=== PATIENT | male | born 1995 | race Caucasian/White ===

== ENCOUNTER 2019-07-21 14:18 | Emergency (ER) | payer SELFPAY ==
[~2019-07-21] VITALS: Ht 172.7 cm; Wt 59.0 kg
[2019-07-21 14:22] VITALS: BP 118/63
[2019-07-21] MEDS ORDERED: LIDOCAINE VISCOUS 2% 20 ML UDC PO ONE (14:35)
[2019-07-21] MEDS ORDERED: DICYCLOMINE HCL LIQUID 20 MG, ALUMINUM HYD/MAG/SIMETHICONE 30 ML, LIDOCAINE VISCOUS 2% ... PO ONE ×3 (14:35)
[2019-07-21] MEDS ORDERED: ALUMINUM HYD/MAG/SIMETHICONE 30 ML UDC PO ONE (14:35)
--- NOTE | 2019-07-21 14:39 | NUR ---
24 Y/O M C/O ABDOMINAL PAIN X 2 DAYS. PT STATES HE HAS AN ULCER, FEELS HIS PAIN IS R/T THE ULCER. PT ABDOMEN IS FLAT, NON TENDER, BOWEL SOUNDS ACTIVE ALL FOUR QUADRANTS. PT DENIES VOMITTING/DIARRHEA. PT POSITIONED FOR COMFORT. NKA
[2019-07-21] MEDS ORDERED: LIDOCAINE VISCOUS 2% 20 ML UDC ONE (14:43)
[2019-07-21] MEDS ORDERED: ALUMINUM HYD/MAG/SIMETHICONE 30 ML UDC ONE (14:43)
[2019-07-21] MEDS ORDERED: DICYCLOMINE HCL LIQUID 10 MG/5 ML UDC ONE (14:44)
--- NOTE | 2019-07-21 15:30 | NUR ---
PT RESTING COMFORTABLY, STATES THE STOMACH PAIN/DISCOMFORT IS BETTER AFTER DRINKING PRESCRIBED MEDICATION.
[2019-07-21 15:34] LABS: BASOPHILS % (AUTO) 0.3 % (0.0-2.0); EOSINOPHILS % (AUTO) 0.1 % (0.0-4.0); HEMATOCRIT 45.4 % (36-52); LYMPHOCYTES # (AUTO) 1.3 K/uL (2.0-11.5); LYMPHOCYTES % (AUTO) 16.9 % (20.5-51.1); MEAN CORPUSCULAR HEMOGLOBIN 29 pg (27-31); MEAN CORPUSCULAR HGB CONC 33 g/dL (33-37); MEAN CORPUSCULAR VOLUME 86.9 fL (80-94); MONOCYTES # (AUTO) 0.3 K/uL (0.8-1.0); MONOCYTES % (AUTO) 4.1 % (1.7-9.3); NEUTROPHILS # (AUTO) 6.2 K/uL (1.8-7.7); NEUTROPHILS % (AUTO) 78.6 % (42.2-75.2); PLATELET COUNT (AUTO) 272 K/uL (140-450); RED BLOOD CELL COUNT(AUTO) 5.22 MIL/uL (4.20-6.10); RED CELL DISTRIBUTION WIDTH 13.4 % (11.6-13.7); WHITE BLOOD COUNT (AUTO) 7.9 K/uL (4.8-10.8)
[2019-07-21 15:37] LABS: ALBUMIN 4.3 g/dL (3.4-5.0); ANION GAP 10.7 (8-16); CARBON DIOXIDE 27.3 mmol/L (21-32); TOTAL BILIRUBIN 0.9 mg/dL (0.0-1.0)
[2019-07-21 16:46] VITALS: BP 118/63
--- NOTE | 2019-07-21 16:47 | NUR ---
Patient discharged with v/s stable. Written and verbal after care instructions given and explained. Patient verbalized understanding. Ambulatory with steady gait. All questions addressed prior to discharge. Advised to follow up with PMD.
== END 2019-07-21 16:47 | disposition home or self-care (01) ==
LOC: MED 14:18
DX: R10.9 Unspecified abdominal pain (principal); K59.00 Constipation, unspecified; F41.9 Anxiety disorder, unspecified
CPT/HCPCS: 36415; 80053; 85025; 99284